=== PATIENT | male | born 1995 | race Caucasian/White ===

== ENCOUNTER 2016-06-10 22:42 | Emergency (ER) | payer OTHER ==
[2016-06-10 23:07] VITALS: BP 132/76; PULSE 85; TEMP 98.8; BMI 27.3
--- NOTE | 2016-06-11 00:32 | PDOC ---
*Physical Exam - Vital Signs Last Vital Signs Temp Pulse Resp BP Pulse Ox 98.8 F 85 18 132/76 99 06/10/16 23:05 06/10/16 23:05 06/10/16 23:05 06/10/16 23:05 06/10/16 23:05 <Robert Rodney - Last Filed: 06/11/16 00:31> - Vital Signs Last Vital Signs Temp Pulse Resp BP Pulse Ox 98.8 F 85 18 132/76 99 06/10/16 23:05 06/10/16 23:05 06/10/16 23:05 06/10/16 23:05 06/10/16 23:05 <Scott Dan - Last Filed: 06/11/16 00:47> ED Treatment Course - RADIOLOGY Radiology Studies Ordered: Category Date Time Status CHEST PA & LAT [RAD] Stat Radiology 06/11/16 00:03 Taken Radiograph Interpretation: 06/11/16 00:46 CXR: 2v NAD <Scott Dan - Last Filed: 06/11/16 00:47> Medical Decision Making - Medical Decision Making 06/11/16 00:31 agree with care from REJI Dan <Robert Rodney - Last Filed: 06/11/16 00:31> *DC/Admit/Observation/Transfer <Robert Rodney - Last Filed: 06/11/16 00:31> <Scott Dan - Last Filed: 06/11/16 00:47> Diagnosis at time of Disposition: Bronchitis - Discharge Dispostion Disposition: HOME Condition at time of disposition: Stable - Prescriptions Prescriptions: Azithromycin [Zithromax -] 250 mg PO DAILY #4 tablet - Patient Instructions Printed Discharge Instructions: DI for Acute Bronchitis Additional Instructions: Rest Increase fluids Tylenol/Motrin as needed for pain/fever Return to the ER for severe/persistent/worsening symptoms
[2016-06-11] MEDS ORDERED: AZITHROMYCIN 250 MG TABLET (FP) PO ONE (00:44)
[2016-06-11] MEDS ORDERED: AZITHROMYCIN 250 MG TABLET (FP) ONE (00:46)
== END 2016-06-11 00:48 | disposition home or self-care (01) ==
LOC: JERFT 22:42
DX: J40 Bronchitis, not specified as acute or chronic (principal)
CPT/HCPCS: 71020-TC; 99281-25

== ENCOUNTER 2016-10-22 07:21 | Emergency (ER) | payer OTHER ==
[2016-10-22 07:28] VITALS: BP 139/87; PULSE 80; TEMP 98.2; BMI 27.3
[2016-10-22] MEDS ORDERED: predniSONE 20 MG TABLET (UD) PO ONE (08:07)
[2016-10-22] MEDS ORDERED: ALBUTEROL SO4 0.083% IH SOL 2.5 MG/3 ML VIAL.NEB. NEB ONE ×2 (08:07→08:24)
[2016-10-22] MEDS ORDERED: LORATADINE 10 MG TABLET PO ONE (08:07)
--- NOTE | 2016-10-22 08:16 | PDOC ---
History of Present Illness - General Chief Complaint: Respiratory Stated Complaint: TROUBLE BREATHING Time Seen by Provider: 10/22/16 07:48 History Source: Patient Exam Limitations: No Limitations - History of Present Illness Initial Comments: 10/22/16 08:16 21-year-old male presents to the ED with complaints of nasal congestion, cough and wheezing since yesterday. Patient states has had similar symptoms in the spring and last spring and denies any recent hospitalizations or history of asthma. Patient denies smoking history, recent travel, fever, chills, shortness of breath, or chest pain. Timing/Duration: reports: yesterday Severity: reports: mild Possible Cause: Yes: occasional episodes Modifying Factors: improves with: coughing Associated Symptoms: reports: cough, nasal congestion, wheezing Past History - Past Medical History Allergies/Adverse Reactions: Allergies Allergy/AdvReac Type Severity Reaction Status Date / Time No Known Allergies Allergy Verified 10/22/16 07:26 Home Medications: Ambulatory Orders Azithromycin [Zithromax -] 250 mg PO DAILY #4 tablet 06/11/16 Other medical history: Patient denies medical history - Immunization History Immunization Up to Date: Yes - Psycho/Social/Smoking Cessation Hx Anxiety: No Suicidal Ideation: No Smoking Status: No Smoking History: Never smoked Number of Cigarettes Smoked Daily: 0 Hx Alcohol Use: No Drug/Substance Use Hx: No Substance Use Type: None Patient Lives Alone: No Lives with/in: parents Respiratory Specific PMHX - Complaint Specific PMHX Bronchitis: No Review of Systems - Review of Systems Able to Perform ROS?: Yes Constitutional: No: Symptoms Reported HEENTM: Yes: Nose Congestion Respiratory: Yes: Cough, Wheezing Cardiac (ROS): No: Symptoms Reported ABD/GI: No: Symptoms Reported Musculoskeletal: No: Symptoms Reported Neurological: No: Headache, Dizziness *Physical Exam - Vital Signs Last Vital Signs Temp Pulse Resp BP Pulse Ox 98.2 F 80 18 139/87 97 10/22/16 07:23 10/22/16 07:23 10/22/16 07:23 10/22/16 07:23 10/22/16 07:23 - Physical Exam General Appearance: Yes: Nourished, Appropriately Dressed. No: Apparent Distress HEENT: positive: EOMI, IDANIA, TMs Normal, Pharynx Normal, Nasal Congestion. negative: Pale Conjunctivae, Sinus Tenderness Neck: positive: Supple Respiratory/Chest: positive: Wheezing (expiratory to left base) Cardiovascular: positive: Regular Rhythm, Regular Rate. negative: Murmur Gastrointestinal/Abdominal: positive: Soft. negative: Tenderness Musculoskeletal: negative: CVA Tenderness Extremity: positive: Normal Capillary Refill. negative: Pedal Edema Integumentary: positive: Normal Color, Warm, Moist Neurologic: positive: Motor Strength 5/5 (ambulatory) Medical Decision Making - Medical Decision Making 10/22/16 08:21 Patient with complaints of nasal congestion, cough and wheezing since yesterday. Patient denies smoking history fever, patient on exam had expiratory wheeze the left base will be discharged home with prednisone and albuterol inhaler. Along with Claritin for the next 5 days. *DC/Admit/Observation/Transfer Diagnosis at time of Disposition: Wheezing, Cough, Nasal congestion - Discharge Dispostion Disposition: HOME Condition at time of disposition: Improved - Referrals Referrals: Meño Alvarez MD [Primary Care Provider] - - Patient Instructions Printed Discharge Instructions: DI for Cough -- Adult Additional Instructions: Please take prednisone for the next 3 days as prescribed starting tomorrow since your given your first dose here in the ER. Please use inhaler as needed for cough and wheezing. Please take Claritin for the next 5 days along with other medication. Follow-up with your PCP. Otherwise return to ED if symptoms worsen.
[2016-10-22] MEDS ORDERED: LORATADINE 10 MG TABLET ONE (08:24)
[2016-10-22] MEDS ORDERED: predniSONE 10 MG TABLET (UD) ONE (08:24)
== END 2016-10-22 08:55 | disposition home or self-care (01) ==
LOC: JER 07:21
PROC: 3E0F7GC Introduction of Other Therapeutic Substance into Respiratory Tract, Via Natural or Artificial Opening (ICD-10-PCS; principal; 2016-10-22)
DX: R06.2 Wheezing (principal)
CPT/HCPCS: 94640; 99281-25

== ENCOUNTER 2017-04-15 09:36 | Emergency (ER) | payer OTHER, BC ==
[2017-04-15 09:44] VITALS: BP 137/76; PULSE 68; TEMP 98.2; BMI 25.8
[2017-04-15] MEDS ORDERED: IBUPROFEN 600 MG TABLET (FP) PO ONE ×2 (11:00→11:13)
--- NOTE | 2017-04-15 11:01 | PDOC ---
History of Present Illness - General Chief Complaint: Injury Stated Complaint: FALL/ RT FOOT INJURY Time Seen by Provider: 04/15/17 10:55 History Source: Patient Exam Limitations: Language Barrier - History of Present Illness Initial Comments: 04/15/17 10:57 My chief complaint: Right ankle pain History of present illness: Patient is a 21-year-old male here today complaining of rt.ankle pain slipping on a rug in the back of his truck at work this morning causing him to fall twisting his right foot and ankle. Reports having sharp pain right ankle laterally and medially with difficulty walking due to pain. Patient reports the pain currently as a 7 out of 10. Patient has not taken anything for pain as yet. Patient having difficulty walking due to pain. Patient denies any other injuries at this time. Patient denies any numbness of his right foot or lower extremity. 04/15/17 10:58 04/15/17 12:03 Occurred: reports: this morning Severity: reports: moderate Pain Location: reports: lower extremity (rt. ankle/foot ) Method of Injury: Yes: fall (twisted rt. ankle/foot ) Modifying Factors: improves with: None Loss of Consciousness: no loss of consciousness Associated Symptoms (Fall): trouble walking (right ankle/foot pain n) Past History - Past Medical History Allergies/Adverse Reactions: Allergies Allergy/AdvReac Type Severity Reaction Status Date / Time No Known Allergies Allergy Verified 04/15/17 09:39 Home Medications: Ambulatory Orders NK [No Known Home Medication] 04/15/17 COPD: No - Immunization History Immunization Up to Date: Yes - Suicide/Smoking/Psychosocial Hx Smoking Status: No Smoking History: Never smoked Have you smoked in the past 12 months: No Number of Cigarettes Smoked Daily: 0 Information on smoking cessation initiated: No Hx Alcohol Use: No Drug/Substance Use Hx: No Substance Use Type: None Review of Systems - Review of Systems Able to Perform ROS?: Yes Constitutional: No: Symptoms Reported HEENTM: No: Symptoms Reported Respiratory: No: Symptoms reported Cardiac (ROS): No: Symptoms Reported ABD/GI: No: Symptoms Reported : No: Symptoms Reported Musculoskeletal: Yes: Joint Pain (rt.foot/ankle ), Joint Swelling (rt. ankle ) Integumentary: No: Symptoms Reported Neurological: No: Symptoms reported *Physical Exam - Vital Signs Last Vital Signs Temp Pulse Resp BP Pulse Ox 98.2 F 68 15 137/76 98 04/15/17 09:40 04/15/17 09:40 04/15/17 09:40 04/15/17 09:40 04/15/17 09:40 - Physical Exam General Appearance: Yes: Appropriately Dressed Vascular Pulses: Dorsalis-Pedis (R): 4+ Extremity: positive: Normal Capillary Refill, Normal Range of Motion (rt.foot toes, flexion and extension of ankle ), Tender (rt. medial/lateral malleolus), Swelling (rt. medial/lateral malleolus). negative: Normal Inspection Integumentary: positive: Swelling (rt. medial/lateral malleolus) Neurologic: positive: Normal Response, Respond to painful stimul (rt. foot/ ankle ), Responsive Deep Tendon Reflexes: Ankle (R): 4+ (no induration ) ED Treatment Course - RADIOLOGY Radiology Studies Ordered: Category Date Time Status ANKLE & FOOT-RIGHT* [RAD] Stat Radiology 04/15/17 10:56 Ordered Medical Decision Making - Medical Decision Making 04/15/17 10:57 04/15/17 12:05 Patient is a 21-year-old male here today complaining of rt.ankle pain slipping on a rug in the back of his truck at work this morning causing him to fall twisting his right foot and ankle. Reports having sharp pain right ankle laterally and medially with difficulty walking due to pain. Patient reports the pain currently as a 7 out of 10. Patient has not taken anything for pain as yet. Patient having difficulty walking due to pain. Patient denies any other injuries at this time. Patient denies any numbness of his right foot or lower extremity. R/O fracture rt./ ankle/foot sprain rt. ankle PLAN: xray rt. foot/ankle, no fracture noted PER DR. RAYMOND erik wrap 3 inch, aircast applied to rt. foot/ankle crutches given ibuprofen 600 mg po now follow up with ortho 04/15/17 19:18 *DC/Admit/Observation/Transfer Diagnosis at time of Disposition: Sprain of ankle, right Qualifiers: Encounter type: initial encounter Involved ligament of ankle: unspecified ligament Qualified Code(s): S93.401A - Sprain of unspecified ligament of right ankle, initial encounter Fall Qualifiers: Encounter type: initial encounter Qualified Code(s): W19.XXXA - Unspecified fall, initial encounter - Discharge Dispostion Disposition: HOME Condition at time of disposition: Stable - Referrals Referrals: Meño Alvarez MD [Primary Care Provider] - Grant iDxon MD [Staff Physician] - - Patient Instructions Additional Instructions: Right foot as much as possible Today and tomorrow and apply ice every hour for at least 15 minutes each time this swollen area keep Erik wrap on an air cast during the day may take off at night and use crutches for ambulation follow-up with orthopedist SOON POSSIBLE Rocephin as needed as directed by armature varnisher for pain Return to emergency room if any numbness of your foot or ankle or any new symptoms develop PATIENT VOICED UNDERSTANDING OF DISCHARGE INSTRUCTIONS AND ALL QUESTIONS WERE ANSWERED THANK YOU FOR CHOOSING [facility] FOR YOUR MEDICAL NEEDS TODAY - Post Discharge Activity Forms/Work/School Notes: Back to Work
== END 2017-04-15 12:18 | disposition home or self-care (01) ==
LOC: JERFT 09:36
DX: S93.401A Sprain of unspecified ligament of right ankle, initial encounter (principal); V68.4XXA Person boarding or alighting a heavy transport vehicle injured in noncollision transport accident, initial encounter; Y92.488 Other paved roadways as the place of occurrence of the external cause; Y93.89 Activity, other specified; Y99.0 Civilian activity done for income or pay
CPT/HCPCS: 73610-TC-RT; 73630-TC-RT; 99281-25

== ENCOUNTER 2018-12-29 00:39 | Emergency (ER) | payer OTHER ==
--- NOTE | 2018-12-29 01:33 | PDOC ---
History of Present Illness - General Chief Complaint: Hemorrhoids Stated Complaint: ANAL PAIN Time Seen by Provider: 12/29/18 01:19 History Source: Patient - History of Present Illness Initial Comments: 12/29/18 01:29 23 year old male c/o external hemorrhoids x 1 week with anal pain. patient used preparation H prior to coming now reports pain relief. patient reported not some blood with wiping. denies anal sex, constipation. reports heavy lifting at work No pmhx 12/29/18 01:31 Past History - Past Medical History Allergies/Adverse Reactions: Allergies Allergy/AdvReac Type Severity Reaction Status Date / Time No Known Allergies Allergy Verified 04/15/17 09:39 Home Medications: Ambulatory Orders Docusate Sodium [Colace] 100 mg PO BID #30 capsule 12/29/18 Hydrocortisone Acetate [Anusol Hc Suppository -] 25 mg RC BID #28 supp.rect Polyethylene Glycol 3350 [Miralax (For Daily Use) -] 17 gm PO DAILY #1 bottle COPD: No - Immunization History Immunization Up to Date: Yes - Suicide/Smoking/Psychosocial Hx Smoking Status: No Smoking History: Never smoked Have you smoked in the past 12 months: No Number of Cigarettes Smoked Daily: 0 Hx Alcohol Use: No Drug/Substance Use Hx: No Substance Use Type: None Review of Systems - Review of Systems Able to Perform ROS?: Yes Is the patient limited Tajik proficient: No Constitutional: No: Symptoms Reported, See HPI, Chills, Diaphoresis, Fever, Loss of Appetite, Malaise, Night Sweats, Weakness, Weight Stable, Unintentional Wgt. Loss, Unexplained wgt Loss, Other ABD/GI: Yes: Rectal Bleeding : No: Symptoms Reported, See HPI, Burning, Dysuria, Discharge, Frequency, Flank Pain, Hematuria, Incontinence, Pain, Urgency, Testicular Mass, Testicular Swelling, Lesions, Testicular Pain, Other Musculoskeletal: No: Symptoms Reported, See HPI, Back Pain, Gout, Joint Pain, Joint Swelling, Muscle Pain, Muscle Weakness, Neck Pain, Joint Stiffness, Other *Physical Exam - Vital Signs 12/29/18 01:38 A: external hemorrhoids P: anusol stool softners miralax outpatient pcp follow up. discussed possible rectal surgery follow up needed - Physical Exam General Appearance: Yes: Appropriately Dressed Rectal Exam: positive: hemorrhoids Neurologic: positive: Fully Oriented, Alert, Normal Mood/Affect *DC/Admit/Observation/Transfer Diagnosis at time of Disposition: External hemorrhoid - Discharge Dispostion Disposition: HOME Condition at time of disposition: Fair - Prescriptions Prescriptions: Docusate Sodium [Colace] 100 mg PO BID #30 capsule Hydrocortisone Acetate [Anusol Hc Suppository -] 25 mg RC BID #28 supp.rect Polyethylene Glycol 3350 [Miralax (For Daily Use) -] 17 gm PO DAILY #1 bottle - Referrals Referrals: Meño Alvarez MD [Primary Care Provider] - - Patient Instructions Printed Discharge Instructions: DI for Hemorrhoids Additional Instructions: take Colace and MiraLAX as prescribed. use Anusol as prescribed follow-up with your primary doctor as soon as possible. eturn to the emergency room for any worsening symptoms. - Post Discharge Activity Forms/Work/School Notes: Back to Work
[2018-12-29 01:49] VITALS: BP 129/80; PULSE 86; TEMP 98.8; BMI 28.3
== END 2018-12-29 02:03 | disposition home or self-care (01) ==
LOC: JER 00:39
DX: K64.4 Residual hemorrhoidal skin tags (principal)
CPT/HCPCS: 99281-25

== ENCOUNTER 2021-01-14 21:34 | Emergency (ER) | payer BC, OTHER ==
[2021-01-14 22:00] VITALS: BP 137/79; PULSE 77; TEMP 98.7; BMI 29.0
== END 2021-01-14 22:33 | disposition home or self-care (01) ==
LOC: JER 21:34
DX: J02.9 Acute pharyngitis, unspecified (principal); Z11.52 Encounter for screening for COVID-19
CPT/HCPCS: 87880; 99283-25; C9803; U0003; U0005

== ENCOUNTER 2021-09-21 23:31 | Emergency (ER) | payer BC ==
[2021-09-21 23:42] VITALS: BP 115/66; PULSE 102; TEMP 98; BMI 29.0
[2021-09-22] MEDS ORDERED: ONDANSETRON *ODT* 4 MG TABLET SL ONE (01:08)
[2021-09-22] MEDS ORDERED: ONDANSETRON *ODT* 4 MG TABLET ONE (01:40)
== END 2021-09-22 02:51 | disposition home or self-care (01) ==
LOC: JER 23:31
DX: R11.10 Vomiting, unspecified (principal)
CPT/HCPCS: 82962; 99283-25; Q0162

== ENCOUNTER 2022-06-27 06:46 | Emergency (ER) | payer BC ==
[2022-06-27 07:01] VITALS: BP 122/78; PULSE 74; RESP 18; TEMP 97.8; BMI 29.8
== END 2022-06-27 07:30 | disposition home or self-care (01) ==
LOC: JER 06:46 → JERFT 06:46
DX: B34.9 Viral infection, unspecified (principal)
CPT/HCPCS: 0241U-QW; 99283-25